=== PATIENT | female | born 1945 | race Caucasian/White ===

== ENCOUNTER 2017-06-16 23:18 | Emergency (ER) | payer MEDICARE ==
[~2017-06-16] VITALS: Ht 157.5 cm; Wt 76.0 kg
[2017-06-16] MEDS ORDERED: HYDROcodone/APAP 5/325 TABLET ONE (23:47)
[2017-06-17] MEDS ORDERED: HYDROcodone/APAP 5/325 TABLET PO PRN
[2017-06-17] MEDS ORDERED: IBUPROFEN 200 MG TABLET PO ONE
[2017-06-17] MEDS ORDERED: ONDANSETRON 2MG/ML, 2ML ONE (00:52)
[2017-06-17] MEDS ORDERED: PROPOFOL 10 MG/ML, 20ML ONE (00:52)
[2017-06-17] MEDS ORDERED: PROPOFOL 10 MG/ML, 20ML IVPush ONE (01:00)
[2017-06-17] MEDS ORDERED: ONDANSETRON 2MG/ML, 2ML IVPush ONE (01:00)
[2017-06-17] MEDS ORDERED: SODIUM CHLORIDE FLUSH 10ML SYR IVF ONE (01:00)
[2017-06-17 02:17] VITALS: BP 142/76
== END 2017-06-17 02:46 | disposition home or self-care (01) ==
LOC: ED 06-17 02:30
DX: S43.004A Unspecified dislocation of right shoulder joint, initial encounter (principal); S42.251A Displaced fracture of greater tuberosity of right humerus, initial encounter for closed fracture; S06.0X0A Concussion without loss of consciousness, initial encounter; W01.0XXA Fall on same level from slipping, tripping and stumbling without subsequent striking against object, initial encounter; Y93.89 Activity, other specified; Y92.89 Other specified places as the place of occurrence of the external cause; Y99.9 Unspecified external cause status
CPT/HCPCS: 23650; 70450; 99152; 99285

== ENCOUNTER 2019-05-09 12:14 | Emergency (ER) | payer MEDICARE ==
[~2019-05-09] VITALS: Ht 154.9 cm; Wt 75.5 kg
[2019-05-09 13:12] LABS: BASOPHILS # (AUTO) 0.11 x10^3/uL (0-0.1); BASOPHILS % (AUTO) 1 % (0-1); EOSINOPHILS # (AUTO) 0.05 x10^3/uL (0-0.4); EOSINOPHILS % (AUTO) 1 % (1-7); LYMPHOCYTES % (AUTO) 26 % (22-44); MD NO; MEAN CORPUSCULAR HEMOGLOBIN 35.8 pg (27.0-34.8); MEAN CORPUSCULAR HGB CONC 33.9 g/dL (32.4-35.8); MEAN CORPUSCULAR VOLUME 105.7 fL (80-100); MEAN PLATELET VOLUME 8.2 fL (7.4-10.4); MONOCYTES # (AUTO) 0.44 x10^3/uL (0.2-0.8); MONOCYTES % (AUTO) 4 % (2-9); NEUTROPHILS # (AUTO) 6.77 x10^3/uL (1.8-6.8); NEUTROPHILS % (AUTO) 68 % (42-75); PLATELET COUNT 185 x10^3/uL (130-400); RED BLOOD COUNT 4.65 x10^6/uL (3.82-5.3); RED CELL DISTRIBUTION WIDTH 14.4 % (9.6-15.2)
[2019-05-09 13:23] LABS: ALBUMIN 3.6 g/dL (3.4-5.0); ANION GAP 7 mmol/L (5-15); CALCIUM 9.3 mg/dL (8.5-10.1); CHLORIDE 110 mmol/L (98-107)
[2019-05-09 13:31] LABS: ALANINE AMINOTRANSFERASE 22 U/L (12-78); ALKALINE PHOSPHATASE 81 U/L (45-117); BILIRUBIN,TOTAL 0.4 mg/dL (0.2-1.0); CREATININE 0.71 mg/dL (0.55-1.02); TOTAL PROTEIN 7.3 g/dL (6.4-8.2); TROPONIN I < 0.015 ng/mL (0.000-0.045)
[2019-05-09 14:50] VITALS: BP 187/96
--- NOTE | 2019-05-09 15:05 | NUR ---
While in room- solol pvc noted. patient noted feeling of palpitation. Which prompted clinical writer to review telemetry record while in ER. 2 seperate occasion where solo PVc noted, no other arthmia noted otherwise Provider made aware
== END 2019-05-09 16:12 | disposition home or self-care (01) ==
LOC: ED 16:05
DX: R00.2 Palpitations (principal); I10 Essential (primary) hypertension; F17.200 Nicotine dependence, unspecified, uncomplicated; R42 Dizziness and giddiness
CPT/HCPCS: 36415; 71045; 80053; 83690; 83735; 84443; 84484; 85025; 93005; 99285